=== PATIENT | male | born 1995 | race Two or more races ===

== ENCOUNTER 2022-05-12 02:14 | Emergency (ER) | payer SELFPAY ==
[~2022-05-12] VITALS: Ht 167.6 cm; Wt 63.5 kg
[2022-05-12 02:24] VITALS: BP 106/65
--- NOTE | 2022-05-12 02:27 | NUR ---
PATIENT [facility] AND [employer] FROM IN N OUT PARKING LOT. PATIENT UPON TRIAGE NO MEDICAL COMPLAINT. PT STATED - SI, - HI. PATIENT VSS, NO ACUTE DISTRESS NOTED.
== END 2022-05-12 06:36 | disposition home or self-care (01) ==
LOC: ER 02:19
DX: F20.9 Schizophrenia, unspecified (principal)